=== PATIENT | female | born 1970 | race Caucasian/White ===

== ENCOUNTER 2016-09-04 23:34 | Emergency (ER) | payer OTHER ==
[2016-09-04 23:45] VITALS: BP 145/94; PULSE 79; RESP 17; TEMP 98.4; O2SAT 96
[2016-09-05] MEDS ORDERED: SODIUM CHLORIDE 0.9% FLUSH 10 ML FLUSH IVF PRN
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
--- NOTE | 2016-09-05 00:31 | RADRPT ---
EXAM DATE/TIME: 09/05/2016 00:09 [place] COMPARISON: No previous studies available for comparison. INDICATIONS : Seizure. RADIATION DOSE: 33.41 CTDIvol (mGy) MEDICAL HISTORY : None SURGICAL HISTORY : None. ENCOUNTER: Initial ACUITY: 1 day PAIN SCALE: 3/10 LOCATION: cranial TECHNIQUE: Multiple contiguous axial images were obtained of the head. Using automated exposure control and adj ustment of the mA and/or kV according to patient size, radiation dose was kept as low as reasonably a chievable to obtain optimal diagnostic quality images. DICOM format image data is available electro nically for review and comparison. FINDINGS: CEREBRUM: The ventricles are normal for age. No evidence of midline shift, mass lesion, hemorrhage or acute in farction. No extra-axial fluid collections are seen. POSTERIOR FOSSA: The cerebellum and brainstem are intact. The 4th ventricle is midline. The cerebellopontine angle i s unremarkable. EXTRACRANIAL: The visualized portion of the orbits is intact. Mild rightward ethmoidal sinus disease SKULL: The calvaria is intact. No evidence of skull fracture. CONCLUSION: Normal examination. Jose A Agudelo MD on September 05, 2016 at 0:29 Board Certified Radiologist. This report was verified electronically.
[2016-09-05 00:49] LABS: AUTOMATED NEUTROPHIL # 5.1 TH/MM3 (1.8-7.7); BASOPHIL % 0.5 % (0.0-2.0); EOSINOPHIL # 0.1 TH/MM3 (0-0.4); EOSINOPHIL % 1.1 % (0.0-4.0); HEMATOCRIT 37.1 % (35.0-46.0); HEMO FLAGS DIFF FINAL; LYMPH % 24.5 % (9.0-44.0); LYMPHOCYTE # 1.9 TH/MM3 (1.0-4.8); MEAN CORPUSCULAR HEMOGLOBIN 34.5 PG (27.0-34.0); MEAN CORPUSCULAR HGB CONC 34.5 % (32.0-36.0); MONO % 8.4 % (0.0-8.0); NEUT % 65.5 % (16.0-70.0); PLATELET COUNT 176 TH/MM3 (150-450); RED BLOOD COUNT 3.71 MIL/MM3 (4.00-5.30); RED CELL DISTRIBUTION WIDTH 12.2 % (11.6-17.2); WHITE BLOOD COUNT 7.8 TH/MM3 (4.0-11.0)
[2016-09-05 01:05] LABS: ALT (GPT) 27 U/L (10-53); ANION GAP 5 MEQ/L (5-15); AST (GOT) 23 U/L (15-37); BICARBONATE 27.7 MEQ/L (21.0-32.0); BLOOD UREA NITROGEN 16 MG/DL (7-18); CHLORIDE 107 MEQ/L (98-107); GLOMERULAR FILTRATION RATE 61 ML/MIN (>89); POTASSIUM 3.6 MEQ/L (3.5-5.1); SODIUM (NA) 140 MEQ/L (136-145)
[2016-09-05 01:07] LABS: ALKALINE PHOSPHATASE 72 U/L (45-117); TOTAL BILIRUBIN ADULT 0.8 MG/DL (0.2-1.0)
[2016-09-05 03:37] VITALS: BP 128/73
--- NOTE | 2016-09-05 13:24 | EKG ---
Date Performed: 09/05/2016 Time Performed: 00:03:21 PTAGE: 45 years EKG: Sinus rhythm WITH SINUS ARRHYTHMIA INCOMPLETE RIGHT BUNDLE BRANCH BLOCK BORDERLINE ECG NO PREVIOUS TRACING DOCTOR: Leidy Miranda Interpretating Date/Time 09/05/2016 13:19:31
== END 2016-09-05 03:51 | disposition home or self-care (01) ==
LOC: NEPE 23:34
DX: R42 Dizziness and giddiness (principal); R53.1 Weakness; R94.31 Abnormal electrocardiogram [ECG] [EKG]; E03.9 Hypothyroidism, unspecified; H91.92 Unspecified hearing loss, left ear; F17.200 Nicotine dependence, unspecified, uncomplicated; Z87.39 Personal history of other diseases of the musculoskeletal system and connective tissue; Z86.59 Personal history of other mental and behavioral disorders
CPT/HCPCS: 70450; 80053; 85025; 93005

== ENCOUNTER 2017-03-29 15:31 | Observation (INO) | payer OTHER ==
[2017-03-29] MEDS ORDERED: SODIUM CHLORIDE 0.9% FLUSH 10 ML FLUSH IVF (15:45)
[2017-03-29] MEDS: LORazepam 1 MG TAB PO (15:56)
[2017-03-29 16:00] LABS: AUTOMATED NEUTROPHIL # 3.1 TH/MM3 (1.8-7.7); BASOPHIL # 0.1 TH/MM3 (0-0.2); BASOPHIL % 1.2 % (0.0-2.0); EOSINOPHIL % 0.9 % (0.0-4.0); HEMO FLAGS DIFF FINAL; HEMOGLOBIN 13.4 GM/DL (11.6-15.3); LYMPH % 27.9 % (9.0-44.0); LYMPHOCYTE # 1.4 TH/MM3 (1.0-4.8); MEAN CELL VOLUME 100.4 FL (80.0-100.0); MEAN CORPUSCULAR HEMOGLOBIN 33.7 PG (27.0-34.0); MEAN CORPUSCULAR HGB CONC 33.6 % (32.0-36.0); MEAN PLATELET VOLUME 7.5 FL (7.0-11.0); MONO % 7.6 % (0.0-8.0); MONOCYTE # 0.4 TH/MM3 (0-0.9); NEUT % 62.4 % (16.0-70.0); PLATELET COUNT 203 TH/MM3 (150-450); RED BLOOD COUNT 3.98 MIL/MM3 (4.00-5.30); RED CELL DISTRIBUTION WIDTH 11.2 % (11.6-17.2)
[2017-03-29 16:14] LABS: CHLORIDE 106 MEQ/L (98-107); POTASSIUM 4.1 MEQ/L (3.5-5.1); SODIUM (NA) 139 MEQ/L (136-145)
[2017-03-29 16:18] LABS: ANION GAP 8 MEQ/L (5-15); BICARBONATE 24.8 MEQ/L (21.0-32.0); BLOOD UREA NITROGEN 11 MG/DL (7-18); CALCIUM 9.2 MG/DL (8.5-10.1); GLUCOSE,RANDOM 147 MG/DL (74-106)
[2017-03-29 16:21] LABS: ALT (GPT) 37 U/L (10-53); AST (GOT) 25 U/L (15-37); CREATININE 0.81 MG/DL (0.50-1.00); GLOMERULAR FILTRATION RATE 76 ML/MIN (>89)
[2017-03-29 16:23] LABS: TOTAL BILIRUBIN ADULT 0.7 MG/DL (0.2-1.0); TOTAL PROTEIN 7.1 GM/DL (6.4-8.2)
[2017-03-29 16:24] LABS: ALKALINE PHOSPHATASE 85 U/L (45-117)
[2017-03-29 16:27] LABS: ALCOHOL LESS THAN 3 MG/DL (0-5)
[2017-03-29 19:06] LABS: BILIRUBIN, URINE NEG (NEG); GLUCOSE,URINE NEG (NEG); KETONE, URINE NEG (NEG); NITRITE,URINE NEG (NEG); PH, URINE 5.5 (5.0-8.5); URINE LEUKOCYTE ESTERASE NEG (NEG)
[2017-03-29 19:08] LABS: BLOOD, URINE TRACE (NEG)
[2017-03-29 19:13] LABS: AMPHETAMINE, URINE NEG (NEG)
[2017-03-29 19:14] LABS: BARBITURATES, URINE NEG (NEG); CANNABINOIDS, URINE NEG (NEG); COCAINE, URINE NEG (NEG)
[2017-03-29] MEDS ORDERED: LORazepam 2 MG/ML VIAL IV (19:15)
[2017-03-29 19:16] LABS: COMMENT (UR) CULT NOT INDICATED; CULTURE IF INDICATED CULT NOT INDICATED; RBC, URINE 0-3 /hpf (0-3); SQUAMOUS EPITHELIAL CELL URINE 0-5 /hpf (0-5); URINE COLOR YELLOW (YELLW/STRAW); WBC, URINE 0-2 /hpf (0-5)
[2017-03-29 19:22] LABS: BENZODIAZEPINE,URINE NEG (NEG)
[2017-03-29] MEDS: NICOTINE 14 MG/24 HR PATCH T-DERMAL (21:00)
[2017-03-29] MEDS: REMOVE OLD NICODERM (NICOTINE) PATCH T-DERMAL (21:00)
[2017-03-29 21:59] LABS: BETA HCG QUANT 2 MIU/ML (0-5)
[2017-03-30] MEDS: ACETAMINOPHEN 500 MG CPLT PO ×2 (00:24→09:12)
[2017-03-30] MEDS: ZOLPIDEM TARTRATE 10 MG TAB PO ×2 (00:26→23:52)
[2017-03-30] MEDS: LEVOTHYROXINE SODIUM 125 MCG TAB PO (05:25)
[2017-03-30] MEDS: NICOTINE 14 MG/24 HR PATCH T-DERMAL (09:12)
[2017-03-30] MEDS: REMOVE OLD NICODERM (NICOTINE) PATCH T-DERMAL (09:13)
[2017-03-30 16:31] LABS: ANA SCREEN NEG (NEG)
[2017-03-30] MEDS: levETIRAcetam 500 MG TAB PO (22:33)
[2017-03-30] MEDS: LORazepam 1 MG TAB PO (22:34)
[2017-03-31] MEDS: LEVOTHYROXINE SODIUM 125 MCG TAB PO (06:39)
[2017-03-31] MEDS: LORazepam 1 MG TAB PO (09:28)
[2017-03-31] MEDS: levETIRAcetam 500 MG TAB PO (09:28)
[2017-03-31] MEDS: GADODIAMIDE PF 287 MG/ML 10 ML VIAL (for RAD MRI) IVCONTRAST (10:14)
== END 2017-03-31 12:38 | disposition home or self-care (01) ==
LOC: PHED 15:31 → PHEDA 17:52 → PH3B 20:50
DX: G40.409 Other generalized epilepsy and epileptic syndromes, not intractable, without status epilepticus (principal); E03.9 Hypothyroidism, unspecified; R00.2 Palpitations; F41.9 Anxiety disorder, unspecified; G47.00 Insomnia, unspecified; F17.210 Nicotine dependence, cigarettes, uncomplicated
CPT/HCPCS: 70450; 70553; 80053; 80307; 81001; 82607; 84443; 84702; 85025; 86038; 93005; 95819; 99285